=== PATIENT | female | born 1990 | race Caucasian/White ===

== ENCOUNTER 2022-01-10 12:35 | Emergency (ER) | payer OTHER ==
[~2022-01-10] VITALS: Ht 162.6 cm; Wt 49.9 kg
[2022-01-10 12:46] VITALS: BP 113/56
--- NOTE | 2022-01-10 12:50 | NUR ---
31/F WALKED IN C/O COUGH ONSET 4DAYS AGO ACCOMPANIED BY HEADACHE. AFEBRILE AT TRIAGE. PT REPORTS NO KNOWN CONTACT WITH SICK PEOPLE. PT ALSO REPORTS NEGATIVE COVID AT HOME. PMH: NONE
--- NOTE | 2022-01-10 12:53 | NUR ---
PT SENT TO [facility]. COVID AND FLU SWAB COLLECTED
[2022-01-10] MEDS ORDERED: BENZ200C4 PO (13:28)
[2022-01-10] MEDS ORDERED: IBUP-2213 PO (13:30)
--- NOTE | 2022-01-10 13:47 | NUR ---
Patient discharged with v/s stable. Written and verbal after care instructions given. Patient alert, oriented and verbalized understanding of instructions. Ambulatory with steady gait. All questions addressed prior to discharge. ID band removed. Patient advised to follow up with PMD. Rx of Benzonatate and Ibuprofen given. Opportunity to ask questions provided and answered. WORK NOTE HANDED TO PATIENT.
== END 2022-01-10 13:47 | disposition home or self-care (01) ==
LOC: MED 12:35
DX: J06.9 Acute upper respiratory infection, unspecified (principal); Z20.822 Contact with and (suspected) exposure to COVID-19; M94.0 Chondrocostal junction syndrome [Tietze]; F17.200 Nicotine dependence, unspecified, uncomplicated
CPT/HCPCS: 99283